=== PATIENT | female | born 1960 | race Caucasian/White ===

== ENCOUNTER 2017-10-11 06:08 | Day surgery (SDC) | payer OTHER ==
[~2017-10-11 06:08] MED LIST: OSTERA TABLET1 EACH PO; PRILOSEC20 MG PO
== END 2017-10-11 11:30 | disposition home or self-care (01) ==
LOC: AMB-ENDOS 06:08
DX: C20 Malignant neoplasm of rectum (principal); K64.1 Second degree hemorrhoids; D64.89 Other specified anemias; R50.9 Fever, unspecified

== ENCOUNTER 2020-09-30 04:58 | Day surgery (SDC) | payer OTHER ==
[2020-10-01] MEDS ORDERED: LEVSIN0.125 MG PO (04:57)
[2020-10-01] MEDS ORDERED: PEPCID AC20 MG PO (04:57)
== END 2020-09-30 10:30 | disposition home or self-care (01) ==
LOC: AMB-ENDOS 04:58
PROVIDERS: ATTEND Colon & Rectal Surgery
DX: K62.1 Rectal polyp (principal); K64.1 Second degree hemorrhoids; Z20.822 Contact with and (suspected) exposure to COVID-19

== ENCOUNTER 2020-10-01 01:01 | Emergency (ER) | payer OTHER ==
[~2020-10-01] VITALS: Ht 167.6 cm; Wt 74.8 kg
[2020-10-01] MEDS ORDERED: LEVSIN0.125 MG PO (04:57)
[2020-10-01] MEDS ORDERED: PEPCID AC20 MG PO (04:57)
== END 2020-10-01 05:02 | disposition home or self-care (01) ==
LOC: ER 01:01
DX: K80.80 Other cholelithiasis without obstruction (principal); R10.13 Epigastric pain; R10.11 Right upper quadrant pain; Z03.818 Encounter for observation for suspected exposure to other biological agents ruled out